=== PATIENT | male | born 1955 | race Caucasian/White ===

== ENCOUNTER 2024-12-22 13:02 | Emergency (ER) | payer MEDICARE, BC, SELFPAY ==
[2024-12-22] VITALS (10 sets, daily range): BP systolic 128–146; BP diastolic 70–84; BMI 34.5
[2024-12-22 13:44] LABS: % Basophils 0.4 % (0-2); % Eosinophils 3.5 % (0-6); % Immature Granulocytes 0.8 % (0-0.5); % Lymphocytes 17.2 % (20.5-51.1); % Monocytes 7.3 % (1.7-9.3); % Neutrophils 70.8 % (42.2-75.2); Absolute Eosinophils 0.3 10^3/uL (0-0.7); Absolute Immature Granulocytes 0.1 10^3/uL (0-0.05); Absolute Lymphocytes 1.5 10^3/uL (1.2-3.4); Absolute Monocytes 0.6 10^3/uL (0.1-0.6); Hematocrit 47.3 % (39.0-52.0); Hemoglobin 15.8 g/dL (13.0-18.0); Mean Corp Hgb Conc. 33.4 g/dL (33.0-37.0); Mean Corpuscular Hgb 30.4 pg (27.0-31.0); Mean Corpuscular Volume 91.1 fL (80.0-94.0); Mean Platelet Volume 10.1 fL (7.4-10.4); Nucleated Red Blood Cells % 0 % (-); Platelet Count 204 10^3/uL (130-400); Red Blood Cell Count 5.19 10^6/uL (4.70-6.10); Red Cell Dist. Width 12.3 % (11.5-14.5); White Blood Cell Count 8.5 10^3/uL (4.8-10.8)
--- NOTE | 2024-12-22 13:48 | ED.GENMED ---
History of Present Illness
<Zhao Martini PA-C - Last Filed: 12/24/24 16:45>
General
Chief Complaint: Musculo-Skeletal Complaint
Source: patient
Time Seen by Provider: 12/22/24 13:08
History of Present Illness
History of Present Illness:
69-year-old male with no significant past medical history presenting to the emergency department for evaluation after he had an accidental trip and fall on uneven gravel falling backwards striking the right flank area onto the ground and since then
has had trouble breathing and mild discomfort into the same right flank. Patient states he does believe he hit his head but there is no reported loss of consciousness, vomiting, visual changes or any other extremity related injuries. Patient
denies any use of anticoagulants. Currently no chest pain. contacted EMS who brought the patient here to the ER for further evaluation.
Past History
<Zhao Martini PA-C - Last Filed: 12/24/24 16:45>
Past History
ED Past Medical History: None
ED Past Surgical History: None
Social History
Tobacco: Non-smoker
Alcohol: None
Drug: None
Personal:
Living: with family
Employment: Retired
Review of Systems
<Zhao Martini PA-C - Last Filed: 12/24/24 16:45>
Review of Systems
All Other Systems: ROS reviewed and negative except as documented in HPI and ROS
Phy Exam
<Zhao Martini PA-C - Last Filed: 12/24/24 16:45>
Physical Exam
Physical Exam:
GENERAL: Alert , in no apparent distress but does appear uncomfortable and slightly short of breath, on 2 L via nasal cannula
HEAD: NCAT
EYE: clear conjunctiva, pupils 4mm bilateral
NECK: Supple, no midline ttp
ENT: o/p clr, mmm.
CARDIAC: Regular rate and rhythm .
LUNGS: Diminished lung sounds right midlung to the base, clear within the apex bilaterally. No accessory muscle use, no flail chest
ABDOMEN: Soft, without focal tenderness, no r/g, no cvat
NEUROLOGICAL: Alert and oriented, no focal neuro deficits
SKIN: Warm and dry, skin intact.
MUSCULOSKELETAL: No edema, well perfused. No signs of trauma
PSYCH: Normal and appropriate interaction.
Scores
<Zhao Martini PA-C - Last Filed: 12/24/24 16:45>
Heart Failure Risk
Heart Failure Risk Score: Not Applicable
Heart Score for Chest Pain Patients
STEMI patient?: Not applicable
Withdrawal Assessment of Alcohol
Withdrawal Assessment Completed?: Not applicable
Course
<Zhao Martini PA-C - Last Filed: 12/24/24 16:45>
Orders/Labs/Results
Orders:
Orders
12/22/24 13:09
CR Chest Portable - 1 View Urgent
Comment:
Reason For Exam: fall, SOB, chest pain
Reason Study Needs to be Portable: Patient Unstable
12/22/24 13:19
CT Cervical Spine W/o Iv Contr Urgent
Comment:
Reason For Exam: fall, trauma
CT Chest/abd/pel W Iv Cont Urgent
Reason For Exam: fall, trauma, right sided thoracic pain
CT Head W/o Iv Contrast Urgent
Comment:
Reason For Exam: fall, trauma
12/22/24 13:24
Type+Screen Urgent
Complete Blood Count/With Diff Urgent
Comprehensive Metabolic Panel Urgent
12/22/24 13:46
ABO2 Urgent
BBK Wristband Number:
Associate notified that ABO2 has been ordered: [id number]
Date: 12/22/24
Time: 13:43
Family Resource Coordinator ID: [id number]
12/22/24 13:51
PTT Urgent
Prothrombin Time Urgent
Abnormal Lab Results
12/22/24
13:24
Abs Immat Gran (auto) 0.1 H 10^3/uL
(0-0.05)
Immature Gran % 0.8 H %
(0-0.5)
Lymphocytes % 17.2 L %
(20.5-51.1)
Chloride 109 H mmol/L
(98-107)
Creatinine 0.6 L mg/dL
(0.7-1.3)
12/22/24 13:24
12/22/24 13:24
Vital Signs
Initial and Last Documented VS:
Initial Vital Signs
Temp Pulse Resp Pulse Ox
98.9 F 84 15 97
12/22/24 13:05 12/22/24 13:05 12/22/24 13:05 12/22/24 13:05
Last Documented Vital Signs
Temp Pulse Resp BP Pulse Ox
98.9 F 88 24 128/84 97
12/22/24 13:05 12/22/24 15:45 12/22/24 15:45 12/22/24 15:45 12/22/24 16:06
<India Stanley MD - Last Filed: 12/22/24 14:04>
Orders/Labs/Results
Orders:
Orders
12/22/24 13:09
CR Chest Portable - 1 View Urgent
Comment:
Reason For Exam: fall, SOB, chest pain
Reason Study Needs to be Portable: Patient Unstable
12/22/24 13:19
CT Cervical Spine W/o Iv Contr Urgent
Comment:
Reason For Exam: fall, trauma
CT Chest/abd/pel W Iv Cont Urgent
Reason For Exam: fall, trauma, right sided thoracic pain
CT Head W/o Iv Contrast Urgent
Comment:
Reason For Exam: fall, trauma
12/22/24 13:24
Type+Screen Urgent
Complete Blood Count/With Diff Urgent
Comprehensive Metabolic Panel Urgent
12/22/24 13:46
ABO2 Urgent
BBK Wristband Number:
Associate notified that ABO2 has been ordered: [id number]
Date: 12/22/24
Time: 13:43
Family Resource Coordinator ID: [id number]
12/22/24 13:51
PTT Urgent
Prothrombin Time Urgent
Abnormal Lab Results
12/22/24
13:24
Abs Immat Gran (auto) 0.1 H 10^3/uL
(0-0.05)
Immature Gran % 0.8 H %
(0-0.5)
Lymphocytes % 17.2 L %
(20.5-51.1)
Chloride 109 H mmol/L
(98-107)
Creatinine 0.6 L mg/dL
(0.7-1.3)
12/22/24 13:24
12/22/24 13:24
Vital Signs
Initial and Last Documented VS:
Initial Vital Signs
Temp Pulse Resp Pulse Ox
98.9 F 84 15 97
12/22/24 13:05 12/22/24 13:05 12/22/24 13:05 12/22/24 13:05
Last Documented Vital Signs
Temp Pulse Resp BP Pulse Ox
98.9 F 88 24 128/84 97
12/22/24 13:05 12/22/24 15:45 12/22/24 15:45 12/22/24 15:45 12/22/24 16:06
<Zhao Martini PA-C - Last Filed: 12/24/24 16:45>
MDM/Problems Addressed
Differential Diagnosis Includes:
- Pneumothorax
- Hemothorax
- Rib fractures
- Liver laceration
- Diaphragmatic rupture
- Anemia
- Muscle strain/contusion
- Intracranial bleeding
MDM/Problems Addressed:
69-year-old male presenting the ER for evaluation after he had sustained accidental trip and fall resulting in right-sided flank pain now with shortness of breath and difficulty breathing. Stat portable chest x-ray ordered which shows abnormality
within the right midlung. No clear pneumothorax. Given the mechanism combined with presenting symptoms a trauma alert was then called. Patient brought immediately to CT scan for trauma imaging. Will keep on nasal cannula at present time for
comfort. Disposition pending.
<Zhao Martini PA-C - Last Filed: 12/24/24 16:45>
*Radiology
Radiology exam reviewed: preliminary read by ED provider (Abnormality within the right mid to lower lung)
*Pulse Oximetry
SaO2: 97
Nasal Cannula flow liters per minute: 4
Oxygen Mode of Delivery: Room air
Patient hypoxic: yes
*Adult Daycare Coordinator Interpretation
Rate: normal
Heart Rate: 95
Rhythm: sinus
*Critical Care Note
Total Time (30-74mins, 75-104mins- exclusive of procedures): 50
comment:
Critical care statement: A total of 50 minutes of critical care time was provided for this patient. This includes management of unstable vital signs, evaluation of the patient at bedside, reviewing the patient's pertinent medical records, discussion
with consultants, review of old EKGs and review of pertinent medical records. This time with separate from time utilized to perform the aforementioned documented procedures
<Zhao Martini PA-C - Last Filed: 12/24/24 16:45>
Patient Management
Discussion with other providers: Detasseling Crew Supervisor and Radiologist
Escalation/DeEscalation of care consider admission/obs:
Informed by radiology that patient has a right sided diaphragm rupture with probable nondisplaced rib fractures. No other areas of trauma pathology noted. Case was discussed with trauma surgeon at [facility] Dr. Moore who accepts the patient in
transfer. Will arrange for transport to [facility]. Patient otherwise remains stable.
ED Attending Note
<Zhao Martini PA-C - Last Filed: 12/24/24 16:45>
-
Portions of this chart may have been created with voice recognition software.� Occasional wrong word or��sound alike� substitutions may have occurred due to the inherent limitations of voice recognition software.
<India Stanley MD - Last Filed: 12/22/24 14:04>
ED Attending Note
Patient seen and examined by attending physician: Yes
I performed the substantive portion of visit, reviewed & personally made and approve the management plan that is documented in note by myself or OLAF.: Yes
ED Attending Note:
Patient is a 69 presenting to the emergency department shortness of breath. Patient states that he fell while coming down the steps. He did not hit his head or lose consciousness. Since the fall he has sudden onset shortness of breath. On
arrival patient is tachypneic. During my evaluation he did have decreased breath sounds to the right lower base but symmetric breath sounds in all other lung santiago with no other obvious traumatic injuries. Immediately a stat portable chest x-ray
was obtained. Per my interpretation possible right sided diaphragmatic rupture versus questionable hemothorax. Patient immediately taken over for trauma aaron scan. We did discuss with radiology who states that there is a right sided diaphragmatic
rupture with no liver laceration. Patient will need transfer to a trauma center.
Discharge Plan
Departure
Patient Disposition: Acute Care Hospital
Date of Disposition: 12/22/24
Time of Disposition: 14:06
Patient with high blood pressure during this ER visit?: No
Discharge Problem:
Traumatic rupture of diaphragm
Prescriptions:
No Action
amitriptyline 50 mg Tablet
50 mg PO HS
tamsulosin [Flomax] 0.4 mg Capsule
0.4 mg PO HS
Creon 36,000-114,000- 180,000 unit Capsule,Delayed Release(Dr/Ec)
2 cap PO AC
Hospital Transfer
Other hospital: [facility]
I certify that the patient requires transfer: Yes
Discussed case with accepting physician: Dr. Moore
Reason for transfer: higher level of care, medical necessity and specialties available
Interventions
Interventions:
*Risk Screen - Suicide Last Done: 12/22/24 13:05
*General Assessment Last Done: 12/22/24 13:05
*Neglect/Abuse Screening Last Done: 12/22/24 13:05
*ED- Fall Risk Assessment Last Done: 12/22/24 16:06
*ED COVID-19 Vaccine History Last Done: 12/22/24 13:05
*Nursing Disposition Last Done: 12/22/24 16:06
ED-Musculoskeletal Assessment Last Done: 12/22/24 13:12
Discharge Date and Time
Discharge Date/Time: 12/22/24 16:10
Print Language: ESTONIAN
[2024-12-22 14:11] LABS: INR 1.01; PT 13.6 Sec (11.4-14.6)
[2024-12-22 14:12] LABS: APTT 26.8 Sec (23.4-35.0)
[2024-12-22 14:13] LABS: ALT (SGPT) 18 U/L (0-50); AST (SGOT) 21 U/L (17-59); Albumin 4.2 g/dl (3.5-5.0); Alkaline Phosphatase 67 U/L (38-126); Blood Urea Nitrogen 15 mg/dl (9-20); Calcium 9.7 mg/dl (8.4-10.2); Carbon Dioxide 26 mmol/L (22-30); Chloride 109 mmol/L (98-107); Estimated Creatinine Clearance 104 ml/min; Glucose 89 mg/dl (70-99); Potassium 4.7 mmol/L (3.5-5.1); Sodium 141 mmol/L (135-145); Total Bilirubin 0.6 mg/dl (0.2-1.3); Total Protein 6.5 g/dl (6.3-8.2); eGFR > 60.00
== END 2024-12-22 16:10 | disposition short-term general hospital (02) ==
LOC: EMR 13:02
PROVIDERS: Physician Assistant Medical; EMERGENCY PHYSICIAN Student in an Organized Health Care Education/Training Program; FAMILY PHYSICIAN Internal Medicine
DX: S27.808A Other injury of diaphragm, initial encounter (principal); W01.0XXA Fall on same level from slipping, tripping and stumbling without subsequent striking against object, initial encounter; R06.02 Shortness of breath
CPT/HCPCS: 99291; 70450; 71045; 71260; 72125; 74177; 80053; 85025; 85610; 85730; 86850; 86900; 86901; Q9967